=== PATIENT | female | born 1990 | race American Indian/Alaskan Native ===

== ENCOUNTER 2017-01-15 01:45 | Emergency (ER) | payer MEDICAID, OTHER ==
[2017-01-15 01:51] VITALS: BP 116/81
[2017-01-15] MEDS ORDERED: GI Cocktail Oral Solution 30 ML PO ONE (02:18)
--- NOTE | 2017-01-15 02:21 | EDM.PDOC ---
ED HPI ENT - General Chief Complaint: ENT Problem Stated Complaint: STREP THROAT;9 WKS Time Seen by Provider: 01/15/17 02:19 Source of Information: Reports: Patient History Limitations: Reports: No limitations - History of Present Illness INITIAL COMMENTS - FREE TEXT/NARRATIVE: c/o sore throat after vomiting from coughing so hard. not sure if it's strep since been spitting up at lot. - Related Data Allergies/ADRs: Allergies Allergy/AdvReac Type Severity Reaction Status Date / Time laundry soap Allergy Itching Uncoded 01/15/17 01:51 Home Meds: Home Meds . 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 ED EXAM, ENT - Physical Exam Exam: See Below Exam Limited By: No limitations General Appearance: alert, WD/WN, mild distress, other (upset) Ears: hearing grossly normal Mouth/Throat: Pharyngeal erythema Head: atraumatic Neck: non-tender, full range of motion Respiratory/Chest: no respiratory distress, lungs clear, normal breath sounds, no accessory muscle use Cardiovascular: regular rate, rhythm GI/Abdominal: soft, non tender Neurological: alert, oriented, normal cognition, normal gait, no motor/sensory deficits Psychiatric: tearful Skin: Warm, Dry Lymphatic: no adenopathy Course - Vital Signs Last Recorded V/S: Last Vital Signs Temp 36.9 C 01/15/17 01:48 Pulse 96 01/15/17 01:48 Resp 18 01/15/17 01:48 BP 116/81 01/15/17 01:48 Pulse Ox 98 01/15/17 01:48 - Orders/Labs/Meds Orders: Active Orders 24 hr Category Date Time Status CULTURE STREP A CONFIRMATION [RM] Stat Lab 01/15/17 01:55 Results STREP SCRN A RAPID W CULT CONF [RM] Stat Lab 01/15/17 01:55 Results Meds: Medications Discontinued Medications Generic Name Dose Route Start Last Admin Trade Name Sonny PRN Reason Stop Dose Admin Al Hydroxide/Mg Hydroxide 30 ml 01/15/17 02:18 01/15/17 02:22 Gi Cocktail PO 01/15/17 02:19 30 ml ONETIME ONE Administration - Re-Assessments/Exams Free Text/Narrative Re-Assessment/Exam: 01/15/17 02:48 s/p GI cocktail=much better. Departure - Departure Time of Disposition: 02:49 Disposition: Home, Self-Care 01 Condition: good Clinical Impression: Esophagitis Instructions: Heartburn, [id number] Forms: ED Department Discharge Additional Instructions: 1) rest 2) follow up at clinic or recheck as needed - My Orders Last 24 Hours: My Active Orders 01/15/17 01:55 CULTURE STREP A CONFIRMATION [RM] Stat STREP SCRN A RAPID W CULT CONF [RM] Stat - Assessment/Plan Last 24 Hours: My Active Orders 01/15/17 01:55 CULTURE STREP A CONFIRMATION [RM] Stat STREP SCRN A RAPID W CULT CONF [RM] Stat
== END 2017-01-15 02:52 | disposition home or self-care (01) ==
LOC: DL.ED 01:45
DX: K20.9 Esophagitis, unspecified (principal); Z87.440 Personal history of urinary (tract) infections; Z91.09 Other allergy status, other than to drugs and biological substances
CPT/HCPCS: 87081; 87430; 99283; A9270

== ENCOUNTER 2017-08-11 18:43 | Inpatient (IN) | payer MEDICAID, OTHER ==
[2017-08-11] MEDS: Lactated Ringers 1,000 ML IV SCH (19:50)
[2017-08-11] MEDS ORDERED: Sodium Chloride 0.9% 10 ML Syringe FLUSH PRN (20:04)
[2017-08-11] MEDS ORDERED: Misoprostol 400 MCG (4 X 100 MCG TAB) RECTAL PRN (20:04)
[2017-08-11] MEDS ORDERED: Methylergonovine 0.2 MG/1 ML Amp IM PRN (20:04)
[2017-08-11] MEDS ORDERED: Lactated Ringers 500 ML IV ONE (20:04)
[2017-08-11] MEDS ORDERED: Ondansetron 4 MG/2 ML SDV IV PRN (20:04)
[2017-08-11] MEDS ORDERED: Carboprost Tromethamine 250 MCG/1 ML Amp IM PRN (20:04)
[2017-08-11] MEDS ORDERED: Lidocaine 1% 30 ML SDV INJECT PRN (20:04)
[2017-08-11] MEDS: Oxytocin/Normal Saline 30 UNIT/500 ML BAG IV SCH (22:22)
[2017-08-11] MEDS: Acetaminophen 325 MG Tab PO PRN (22:41)
[2017-08-12] MEDS: Lactated Ringers 1,000 ML IV SCH ×4 (03:25→21:27)
[2017-08-12] MEDS ORDERED: fentaNYL 100 MCG/2 ML SDV ONE (04:05)
--- NOTE | 2017-08-12 04:55 | PCM.PRNOTE ---
- Free Text/Narrative Note: Requested to provide analgesia to full term patient in severe pain. Upon entering the room, patient is sitting up complaining of severe abdominal pain and discomfort. Procedure was discussed with patient including adverse outcomes and expectations. Pt consented to analgesia, SAB/IT. Pt placed into a sitting position. Landmarks for SAB/IT were identified and marked. Back was prepped with betadine x3. A sterile, transparent, fenestrated drape was applied. Excess betadine was removed. Using 3 mL of a 1% lidocaine solution, a skin wheel was placed at the L3/L4 interspace. A 24 ga (4 inch) Pencan spinal needle was inserted until positive for CSF. Negative for heme or paresthesias. Injected fentanyl 20 mcg, sufentanil 10 mcg, and 12 mg of a 0.75% bupivacaine solution with an epi wash. Pt was placed left lateral position for approximately 20 minutes. Pt was having a few late decels so was turned right. After 5 minutes, decels had improved. There were zero complications or adverse outcomes. Will continue to monitor.
[2017-08-12] MEDS: Acetaminophen 325 MG Tab PO PRN (08:55)
[2017-08-12] MEDS ORDERED: Morphine PF 1 MG/ML Amp ONE (09:13)
[2017-08-12] MEDS ORDERED: Ondansetron 4 MG/2 ML SDV ONE (09:14)
[2017-08-12] MEDS ORDERED: Ketorolac 30 MG/ML SDV ONE (09:14)
[2017-08-12] MEDS ORDERED: ePHEDrine 50 MG/ML SDV ONE (09:14)
[2017-08-12] MEDS ORDERED: Citric Acid/Sodium Citrate Solution 30 ML Cup PO ONE (09:27)
[2017-08-12] MEDS ORDERED: Oxytocin/Normal Saline 60 UNIT/1,000 ML BAG ONE (09:42)
[2017-08-12] MEDS: Ampicillin 2 GM in Sodium Chloride 0.9% 100 ML IV SCH ×3 (10:12→21:15)
[2017-08-12] MEDS ORDERED: diphenhydrAMINE 50 MG/ML SDV IVPUSH PRN (10:43)
[2017-08-12] MEDS ORDERED: Acetaminophen 325 MG Tab PO PRN (10:43)
[2017-08-12] MEDS ORDERED: Naloxone 2 MG/2 ML Syringe IVPUSH PRN (10:43)
[2017-08-12] MEDS ORDERED: Ondansetron 4 MG/2 ML SDV IV PRN (10:43)
[2017-08-12] MEDS ORDERED: ePHEDrine 50 MG/ML SDV IVPUSH PRN (10:43)
[2017-08-12] MEDS ORDERED: Misoprostol 400 MCG (4 X 100 MCG TAB) RECTAL PRN (10:43)
[2017-08-12] MEDS ORDERED: Acetaminophen/oxyCODONE 325-5 MG Tab PO PRN (10:43)
[2017-08-12] MEDS ORDERED: Methylergonovine 0.2 MG/1 ML Amp IM PRN (10:43)
[2017-08-12] MEDS ORDERED: Carboprost Tromethamine 250 MCG/1 ML Amp IM ONE (10:43)
[2017-08-12] MEDS: Oxytocin/Normal Saline 30 UNIT/500 ML BAG IV SCH (10:51)
[2017-08-12] MEDS ORDERED: Promethazine 25 MG/ML SDV IM PRN (12:15)
[2017-08-12] MEDS: Clindamycin Phosphate 900 MG in Sodium Chloride 0.9% 100 ML IV SCH ×3 (12:22→23:47)
--- NOTE | 2017-08-12 15:29 | OR ---
DATE: 08/12/2017 PREOPERATIVE DIAGNOSIS: An IUP at 39 weeks gestational age with nonreassuring heart tones in the setting of chorioamnionitis. POSTOPERATIVE DIAGNOSIS: An IUP at 39 weeks gestational age with nonreassuring heart tones in the setting of chorioamnionitis. PROCEDURE: Primary low-transverse . CONVEYOR LINE BATTERY CHARGER: Marixa Rizvi MD ANESTHESIA: Spinal. POSTOPERATIVE FINDINGS: There was a viable infant, and the patient had normal female anatomy. scores were 7 and 9. Baby weighed 6 pounds, 13 ounces. PATHOLOGY: Placenta. ESTIMATED BLOOD LOSS: 700 mL. PROCEDURE IN DETAIL: The patient was admitted the night before with premature rupture of membranes. As she did not progress in labor herself, therefore Pitocin augmentation was started. The patient very slowly progressed and then developed fevers and non-reassuring heart tones. The patient did have chorioamnionitis, therefore, gentamicin and ampicillin were both started. The patient would not progress past 7 to 8 cm, therefore, she was taken the operating room, where she was prepped and draped in normal sterile fashion with a Christianson in place in a leftward tilt. Skin incision was made 2 fingerbreadths above the pubic symphysis carried down the underlying fascia. The fascia was incised in the midline. Fascial incision was extended laterally using heavy scissors. Upper aspect of the fascia was grasped with Luis Enrique clamps and the rectus muscles were dissected off bluntly with the heavy scissors. Lower aspect of the fascia was grasped with Luis Enrique clamps, and again the rectus muscles were dissected off bluntly and with the heavy scissors. Rectus muscles were in the midline. Peritoneum was entered with blunt finger dissection. The peritoneum was stretched open and the self-retraining retractor was then placed, the Luciano, and the bladder flap was created by first grasping the vesicouterine peritoneum with a pickup, entered sharply with the Metzenbaum scissors. Bladder flap was created digitally. Lower uterine segment was incised in a transverse fashion with the scalpel. The incision was extended using the Mcrae method. The infant's head was grasped and the infant was delivered without any difficulty. The cord was cut and clamped. The infant was handed off to Dr. Rizvi, who took the baby to the warmer. The placenta was then manually extracted and sent the pathology. Infant's scores were 7 and 8. Baby weighed 6 pounds, 13 ounces. The hysterotomy was then repaired with a running locked 0 Vicryl. A second layer of 0 Vicryl imbricating. The pelvis was then copiously irrigated. The Luciano retractor was then removed, and the peritoneum was reapproximated using a running 3-0 Vicryl. Fascia was repaired using a running 0 Vicryl. Subcutaneous fat was irrigated and the skin was reapproximated using a subcuticular stitch with Milton needle with Steri-Strips over that. The patient tolerated the procedure well. Sponge, lap, needle counts were correct x2. Estimated blood loss was 700 mL. The patient was then continued on ampicillin and gentamicin, and clindamycin was added postoperatively at least for the first 24 hours. [facility] /[id number] RUBI
[2017-08-12] MEDS: Ketorolac 30 MG/ML SDV IVPUSH SCH ×2 (16:39→22:22)
[2017-08-12] MEDS: Docusate Sodium 100 MG Cap PO PRN (23:32)
[2017-08-12] MEDS: Simethicone 80 MG Tab.Chew PO PRN (23:33)
[2017-08-13] MEDS: Ampicillin 2 GM in Sodium Chloride 0.9% 100 ML IV SCH ×4 (03:10→21:27)
[2017-08-13] MEDS: Simethicone 80 MG Tab.Chew PO PRN ×4 (03:19→21:37)
[2017-08-13] MEDS: Ketorolac 30 MG/ML SDV IVPUSH SCH (04:17)
[2017-08-13] MEDS: Lactated Ringers 1,000 ML IV SCH (04:24)
[2017-08-13] MEDS: Clindamycin Phosphate 900 MG in Sodium Chloride 0.9% 100 ML IV SCH ×3 (06:11→17:57)
[2017-08-13] MEDS: Acetaminophen/oxyCODONE 325-5 MG Tab PO PRN ×3 (06:13→21:36)
[2017-08-13] MEDS: Docusate Sodium 100 MG Cap PO PRN ×2 (08:45→21:36)
--- NOTE | 2017-08-13 08:45 | HP ---
HISTORY OF PRESENT ILLNESS: The patient is a 26-year-old, G4, P2, at 39 weeks gestational age, who presents today with leakage of fluid. No real painful contraction. She had a good movement. No vaginal bleeding. No fevers or chills. OBSTETRICAL HISTORY: The patient has had 1 miscarriage in April of 2016. The patient had 2 vaginal deliveries. Biggest baby born was 9 pounds 1 ounce. GYNECOLOGICAL HISTORY: She did have an abnormal Pap and colposcopy previously, but followup has been normal. No STDs. PAST MEDICAL HISTORY: Negative. PAST SURGICAL HISTORY: Just an oral surgery. SOCIAL HISTORY: The patient does smoke. ALLERGIES: The patient has no known drug allergies. LABS: Patient's blood type O positive. Antibody negative. Rubella immune. Syphilis negative. Hep B negative. HIV negative. GC and chlamydia negative. Hep C negative. One-hour was 148, but three-hour was normal. Group B strep was negative. The patient had ultrasounds at 7 and 20 weeks gestational age which were consistent with dates, showed a posterior placenta and normal anatomy. PHYSICAL EXAMINATION: Vital Signs: Upon admission the patient's blood pressure 122/71, and heart rate 101. The patient is afebrile. Lungs: Clear to auscultation bilaterally. Heart: Regular rate and rhythm. The external monitoring was reactive and reassuring with a few random decelerations tesha every 4 minutes. Cervix per the Labor Nurse was 3 cm. ASSESSMENT AND PLAN: A 26-year-old, G4, P2, at 39 weeks gestational age, uncomplicated thus far with premature rupture of membranes. I do want augment this patient with Pitocin and plan for vaginal delivery. Unfortunately, though through the evening the patient cannot seem to progress past 7 to 8 cm. She is now having non-reassuring heart tones and did have a temp of 101.6; therefore, ampicillin and gentamicin were both started and patient does consent to a primary low-transverse for non-reassuring heart tones in the background of chorioamnionitis. [facility] /[id number]
--- NOTE | 2017-08-13 12:24 | PN ---
DATE: 08/13/2017 Postop day #1, status post primary low transverse . SUBJECTIVE: The patient has now been tolerating p.o., passing flatus, has got out of bed, has urinated, and Christianson has been pulled. OBJECTIVE: Vital Signs: Include a temperature of 97.8, heart rate 117, blood pressure 107/61, respiratory rate 18, and O2 sats 100% on room air. Appearance: Awakes easily from sleep. Lungs: Clear to auscultation bilaterally. Heart: S1 and S2. Regular rate and rhythm. Abdomen: Firm uterus, -1 below umbilicus. ABD pad over the incision is noted. JAMEY hose are on. Extremities: Trace pedal edema. No calf pain. ASSESSMENT AND PLAN: Postop day #1, status post primary low transverse C- section complicated by chorioamnionitis and fever, resolving. The patient has been afebrile since delivery. We will continue to follow clinically and closely. She is currently on Amp, Gent, and Clindamycin. Most likely, we will discontinue this in the future and plans were discussed with the patient. She understands and agrees the above treatment plan. [facility] /[id number]
[2017-08-13] MEDS ORDERED: Ketorolac 30 MG/ML SDV IVPUSH ONE (14:31)
[2017-08-13] MEDS ORDERED: Morphine PF 1 MG/ML Amp ONE (14:31)
[2017-08-13] MEDS ORDERED: ePHEDrine 50 MG/ML SDV IV ONE (14:31)
[2017-08-13] MEDS ORDERED: Ondansetron 4 MG/2 ML SDV IV ONE (14:31)
[2017-08-13] MEDS ORDERED: fentaNYL 100 MCG/2 ML SDV ITHECAL ONE ×2 (14:33→14:42)
[2017-08-13] MEDS: Ibuprofen 800 MG Tab PO PRN (16:21)
[2017-08-13] MEDS: Sodium Chloride 0.9% 10 ML Syringe FLUSH PRN (21:27)
[2017-08-14] MEDS: Clindamycin Phosphate 900 MG in Sodium Chloride 0.9% 100 ML IV SCH ×2 (00:32→05:56)
[2017-08-14] MEDS: Ibuprofen 800 MG Tab PO PRN ×3 (00:40→18:09)
[2017-08-14] MEDS: Ampicillin 2 GM in Sodium Chloride 0.9% 100 ML IV SCH ×2 (03:09→08:44)
[2017-08-14] MEDS: Acetaminophen/oxyCODONE 325-5 MG Tab PO PRN ×5 (04:05→22:55)
[2017-08-14] MEDS: Simethicone 80 MG Tab.Chew PO PRN ×3 (08:27→22:55)
[2017-08-14] MEDS: Docusate Sodium 100 MG Cap PO PRN ×2 (08:27→22:55)
[2017-08-14] MEDS: Sodium Chloride 0.9% 10 ML Syringe FLUSH PRN (08:45)
--- NOTE | 2017-08-14 09:22 | PN ---
DATE: 08/14/2017 Postoperative day #2. SUBJECTIVE: The patient is tolerating POs, ambulating, urinating, passing flatus, had a bowel movement last night. OBJECTIVE: Vital Signs: Temperature 96.9, heart rate is 78, blood pressure 115/76, and respiratory rate 16. Lungs: Clear to auscultation bilaterally. Heart: S1 and S2. Regular rate and rhythm. Abdomen: Firm uterus -1 below umbilicus. Incision appears dry and intact except for minimal drainage in the midline with Steri-Strips applied. No underlying erythema, fluctuance, or excessive tenderness. LABORATORY DATA: White cell count 11.7, hemoglobin 9.1, and platelets 251. ASSESSMENT: 1. Postoperative day #2, status post primary low transverse section. 2. Chorioamnionitis. The patient will receive for approximately 48 hours antibiotics and discontinue these later this morning. 3. Anemia of acute blood loss. Hemoglobin dropping from 10.9 to 9.1. The patient is currently asymptomatic. Denies any chest pain, shortness of breath, or lightheadedness, and appears stable. We will follow closely. PLAN: Please see orders for further details. Possible discharge tomorrow. [facility] /[id number]
[2017-08-14] MEDS ORDERED: Oxytocin/Normal Saline 30 UNIT/500 ML BAG IV ONE (16:41)
[2017-08-15] MEDS: Ibuprofen 800 MG Tab PO PRN ×2 (03:31→12:12)
[2017-08-15] MEDS: Acetaminophen/oxyCODONE 325-5 MG Tab PO PRN ×2 (04:02→12:12)
[2017-08-15 08:14] VITALS: BP 98/70
[2017-08-15] MEDS: Docusate Sodium 100 MG Cap PO PRN (12:13)
--- NOTE | 2017-08-15 14:29 | DISCH ---
ADMISSION DATE: 08/11/2017 ADMIT DIAGNOSES: 1. Intrauterine at term. 2. Premature rupture of membranes. 3. Impaired glucose tolerance. DISCHARGE DIAGNOSES: 1. Intrauterine , delivered via primary low transverse . 2. Premature rupture of membranes. 3. Impaired glucose tolerance. 4. Chorioamnionitis, requiring approximately 48 hours antibiotics. 5. Anemia acute blood loss. Hemoglobin dropping from 10.9 to 9.1. 6. Now G3, P3-0-0-3. 7. Nonreassuring status. HISTORY OF PRESENT ILLNESS: Please see H and P. SUMMARY OF HOSPITAL COURSE: The patient was admitted on the above date with the above diagnoses. She had premature rupture of membranes and nonreassuring status, and evidence of chorioamnionitis, underwent a primary low transverse C- section yielding a female with scores of 7 and 8, weighing 3080 g (6 pounds, 13 ounces). Please see delivery note for further details. Postop day #1 and #2, please see progress notes. The patient was kept on antibiotics for approximately 48 hours and followed closely. She has been afebrile since delivery. DISCHARGE EVALUATION: Vital Signs: Temperature 98.2, heart rate 77, blood pressure 98/70, respiratory rate 16. Lungs: Clear to auscultation bilaterally. Heart: S1 and S2. Regular rate and rhythm. Abdomen: Firm uterus, -1 below umbilicus. Incision revealed Steri-Strips applied, minimal drainage, otherwise, dry and intact. Extremities: 1+ pitting edema to proximal tibia with JAMEY hose on. No calf pain. CONDITION ON DISCHARGE COMPARED TO CONDITION ON ADMISSION: Improved. DISCHARGE INSTRUCTIONS: 1. Diet: As tolerated. 2. Activity: No lifting more than 20 pounds. No sit-ups, straining, and pelvic rest for next 6 weeks with immediate return to fertility discussed with the patient. 3. Reasons to return or go to the emergency room were discussed with the patient in detail including, but not limited to, temperature greater than 100.4, foul-smelling discharge, red or hot breasts, or increased vaginal bleeding. DISCHARGE MEDICATIONS: 1. [id number] Tylenol or ibuprofen for pain. 2. Iron sulfate 325 b.i.d. x6 weeks. 3. Percocet 5/325, one to two q.6 hours p.r.n., #30. No refills. Discussed the use of these medication, adverse and wanted effects, as well precautions while driving. FOLLOWUP: Followup on 08/17/2017 for incision check and along with her baby. I did discuss with her the importance of followup and ramifications of not doing so, as well as reason to emergency room in regard to her . [facility] /[id number]
== END 2017-08-15 15:50 | disposition home or self-care (01) | DRG 765 ==
LOC: DL.OBCHECK 18:43 → DL.OB 19:47 → OBSVTOIN 08-12 10:17
PROVIDERS: ADMIT Obstetrics & Gynecology; ATTEND Obstetrics & Gynecology
PROC: 10D00Z1 Extraction of Products of Conception, Low, Open Approach (ICD-10-PCS; principal; 2017-08-12)
PROC: 3E0R3BZ Introduction of Anesthetic Agent into Spinal Canal, Percutaneous Approach (ICD-10-PCS; 2017-08-12)
PROC: 00HU33Z Insertion of Infusion Device into Spinal Canal, Percutaneous Approach (ICD-10-PCS; 2017-08-12)
DX: O42.02 Full-term premature rupture of membranes, onset of labor within 24 hours of rupture (principal); O41.1230 Chorioamnionitis, third trimester, not applicable or unspecified; D62 Acute posthemorrhagic anemia; O76 Abnormality in fetal heart rate and rhythm complicating labor and delivery; O99.02 Anemia complicating childbirth; Z3A.39 39 weeks gestation of pregnancy; Z37.0 Single live birth; O99.334 Smoking (tobacco) complicating childbirth; F17.200 Nicotine dependence, unspecified, uncomplicated
CPT/HCPCS: 01961; 01967; 36415; 82565; 83986; 85027; 86850; 86900; 86901; A9270-GY; J0290; J1200; J1580; J1885; J2274; J2405; J2550; J2590; J3010; J7050; J7120; S0077

== ENCOUNTER 2020-09-19 02:11 | Emergency (ER) | payer MEDICAID, OTHER ==
[2020-09-19 02:37] VITALS: BP 134/93; PULSE 112
[2020-09-19] MEDS ORDERED: Phenazopyridine 95 MG Tab PO ONE (03:06)
[2020-09-19] MEDS ORDERED: Sulfamethoxazole/Trimethoprim 800-160 MG Tab PO ONE (03:06)
--- NOTE | 2020-09-19 03:11 | EDM.PDOC ---
ED HPI GENERAL MEDICAL PROBLEM - General Chief Complaint: Genitourinary Problem Stated Complaint: UTI Time Seen by Provider: 09/19/20 03:07 Source of Information: Reports: Patient History Limitations: Reports: No Limitations - History of Present Illness INITIAL COMMENTS - FREE TEXT/NARRATIVE: onset dysuria urgency today - Related Data Allergies Allergy/AdvReac Type Severity Reaction Status Date / Time laundry soap AdvReac Mild Rash Uncoded 08/12/17 00:00 Home Meds: Home Meds Vit37/Iron/Folic Acid [Prenata] 1 tab PO DAILY 08/11/17 [History] Ibuprofen [Advil] 400 mg PO DAILY PRN 08/12/17 [History] Past Medical History - Past Health History Medical/Surgical History: Denies Medical/Surgical History HEENT History: Reports: None Cardiovascular History: Reports: None Respiratory History: Reports: None Gastrointestinal History: Reports: None Genitourinary History: Reports: UTI, Recurrent 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: , 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 , 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 (See Below) 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 Musculoskeletal History: Reports: None Neurological History: Reports: None Psychiatric History: Reports: None Endocrine/Metabolic History: Reports: None Hematologic History: Reports: None Immunologic History: Reports: None Oncologic (Cancer) History: Reports: None Dermatologic History: Reports: None - Infectious Disease History Infectious Disease History: Reports: None - Past Surgical History Head Surgeries/Procedures: Reports: None Female Surgical History: Reports: Other (See Below) Other Female Surgeries/Procedures: cervical biopsy hx Social & Family History - Family History Family Medical History: No Pertinent Family History - Tobacco Use Tobacco Use Status *Q: Current Every Day Tobacco User Years of Tobacco use: 2 Packs/Tins Daily: 0.2 - Caffeine Use Caffeine Use: Reports: Soda Other Caffeine Use: 2/day - Recreational Drug Use Recreational Drug Use: No ED ROS GENERAL - Review of Systems Review Of Systems: Comprehensive ROS is negative, except as noted in HPI. ED EXAM, RENAL/ - Physical Exam Exam: See Below Exam Limited By: No Limitations General Appearance: Alert, WD/WN, Mild Distress, Other (discomfort). No: Active Emesis Ears: Hearing Grossly Normal Throat/Mouth: Normal Voice, No Airway Compromise Head: Atraumatic Neck: Non-Tender, Full Range of Motion Respiratory/Chest: No Respiratory Distress Cardiovascular: Regular Rate, Rhythm GI/Abdominal: Tender, Other (supraoubic). No: Distended, Guarding, Rigid, Rebound (Female) Exam: Deferred Rectal (Female) Exam: Deferred Back Exam: No: CVA Tenderness (L), CVA Tenderness (R) Neurological: Alert, Oriented, Normal Cognition, Normal Gait, No Motor/Sensory Deficits Psychiatric: Normal Affect, Normal Mood Skin Exam: Warm, Dry, Normal Color Lymphatic: No Adenopathy Course - Vital Signs Last Recorded V/S: Last Vital Signs Temp 37.0 C 09/19/20 02:33 Pulse 112 H 09/19/20 02:33 Resp 16 09/19/20 02:33 BP 134/93 H 09/19/20 02:33 Pulse Ox 100 09/19/20 02:33 - Orders/Labs/Meds Orders: Active Orders 24 hr Category Date Time Status CULTURE URINE [RM] Routine Lab 09/19/20 02:24 Received Labs: Laboratory Tests 09/19/20 Range/Units 02:24 Urine Color Dark yellow (YELLOW) Urine Appearance Cloudy (CLEAR) Urine pH 6.5 (5.0-9.0) Ur Specific [place] >= 1.030 (1.005-1.030) Urine Protein >=300 H (NEGATIVE) Urine Glucose (UA) Negative (NEGATIVE) Urine Ketones Negative (NEGATIVE) Urine Occult Blood Large H (NEGATIVE) Urine Nitrite Negative (NEGATIVE) Urine Bilirubin Small H (NEGATIVE) Urine Urobilinogen 4.0 H (0.2-1.0) mg/dL Ur Leukocyte Esterase Trace H (NEGATIVE) Urine RBC Packed H /HPF Urine WBC 5-10 H (0-5/HPF) /HPF Ur Epithelial Cells Moderate H (NOT SEEN) /HPF Urine Bacteria Moderate H (0-FEW/HPF) /HPF Meds: Medications Discontinued Medications Generic Name Dose Route Start Last Admin Trade Name Freq PRN Reason Stop Dose Admin Phenazopyridine HCl 95 mg 09/19/20 03:06 Urinary Pain Relief PO 09/19/20 03:07 ONETIME ONE Trimethoprim/Sulfamethoxazole 1 tab 09/19/20 03:06 Septra Ds PO 09/19/20 03:07 ONETIME ONE - Re-Assessments/Exams Free Text/Narrative Re-Assessment/Exam: 09/19/20 03:09 results discussed with pt. Departure - Departure Time of Disposition: 03:09 Disposition: Home, Self-Care 01 Condition: Good Clinical Impression: UTI, Urinary tract infectious disease - Discharge Information Instructions: Urinary Tract Infection, Adult, [id number] Additional Instructions: 1) drink lots of liquids 2) follow up at clinic rx given; bactrim DS bid x 20 pyridium 100mg tid x 12 Sepsis Event Note (ED) - Evaluation Sepsis Screening Result: No Definite Risk - Focused Exam Vital Signs: Vital Signs Temp Pulse Resp BP Pulse Ox 09/19/20 02:33 37.0 C 112 H 16 134/93 H 100 - My Orders Last 24 Hours: My Active Orders 09/19/20 02:24 CULTURE URINE [RM] Routine - Assessment/Plan Last 24 Hours: My Active Orders 09/19/20 02:24 CULTURE URINE [RM] Routine
== END 2020-09-19 03:25 | disposition home or self-care (01) ==
LOC: DL.ED 02:11
DX: N39.0 Urinary tract infection, site not specified (principal); F17.210 Nicotine dependence, cigarettes, uncomplicated; Z91.048 Other nonmedicinal substance allergy status
CPT/HCPCS: 81001; 87086; 99283; A9270-GY

== ENCOUNTER 2021-10-25 16:14 | Emergency (ER) | payer MEDICAID ==
[2021-10-25 18:05] VITALS: BP 125/85; PULSE 109
[2021-10-25 18:39] LABS: ANION GAP 15.5 mEq/L (7-13); CHLORIDE,CL 104 mmol/L (98-107); SODIUM,NA 143 mmol/L (136-145)
[2021-10-25 20:00] LABS: RESPIRATORY SYNCYTIAL VIR NAA NEGATIVE (NEGATIVE)
[2021-10-25 20:13] LABS: CORONAVIRUS COVID-19 NAA POSITIVE (NEGATIVE)
--- NOTE | 2021-10-25 20:34 | EDM.PDOC ---
ED HPI GENERAL MEDICAL PROBLEM - General Chief Complaint: Chest Pain Stated Complaint: CHEST PAIN Time Seen by Provider: 10/25/21 20:25 Source of Information: Reports: Patient History Limitations: Reports: No Limitations - History of Present Illness INITIAL COMMENTS - FREE TEXT/NARRATIVE: This 31 yo female patient reports to the ED with back pain and chest tightness that started today. The patient reports she did not have any additional symptoms or concerns at this time. Onset: Today Duration: Constant Location: Reports: Generalized Quality: Reports: Other Severity: Moderate Improves with: Reports: None Worsens with: Reports: None Context: Reports: Other Associated Symptoms: Reports: Chest Pain, Other (back aches) Treatments SAP TRAINER: Reports: Other (see below) Other Treatments SAP TRAINER: labs Epigastric Pain Score (Numeric/FACES): 5 - Related Data Allergies Allergy/AdvReac Type Severity Reaction Status Date / Time laundry soap AdvReac Mild Rash Uncoded 10/25/21 18:13 Home Meds: Home Meds Ibuprofen [Advil] 400 mg PO DAILY PRN 08/12/17 [History] Acetaminophen [Tylenol] 325 mg PO DAILY PRN 10/25/21 [History] Past Medical History - Past Health History Medical/Surgical History: Denies Medical/Surgical History HEENT History: Reports: None Cardiovascular History: Reports: None Respiratory History: Reports: None Gastrointestinal History: Reports: None Genitourinary History: Reports: UTI, Recurrent DRAMATIC READER History: Reports: , Spontaneous , Other (See Below) Other DRAMATIC READER History: colposcopy December 2015 Musculoskeletal History: Reports: None Neurological History: Reports: None Psychiatric History: Reports: None Endocrine/Metabolic History: Reports: None Hematologic History: Reports: None Immunologic History: Reports: None Oncologic (Cancer) History: Reports: None Dermatologic History: Reports: None - Infectious Disease History Infectious Disease History: Reports: None - Past Surgical History Head Surgeries/Procedures: Reports: None Female Surgical History: Reports: Other (See Below) Other Female Surgeries/Procedures: cervical biopsy hx Social & Family History - Family History Family Medical History: No Pertinent Family History - Tobacco Use Tobacco Use Status *Q: Current Every Day Tobacco User Years of Tobacco use: 5 Packs/Tins Daily: 0.4 - Caffeine Use Caffeine Use: Reports: Soda, Tea Other Caffeine Use: 2/day - Recreational Drug Use Recreational Drug Use: No ED ROS GENERAL - Review of Systems Review Of Systems: Comprehensive ROS is negative, except as noted in HPI. ED EXAM, GENERAL - Physical Exam Exam: See Below Exam Limited By: No Limitations General Appearance: Alert, WD/WN, Moderate Distress Eye Exam: Bilateral Eye: EOMI, Normal Inspection, PERRL Ears: Normal External Exam, Normal Canal, Hearing Grossly Normal, Normal TMs Nose: Normal Inspection, Normal Mucosa, No Blood Throat/Mouth: Normal Inspection, Normal Lips, Normal Teeth, Normal Gums, Normal Oropharynx, Normal Voice, No Airway Compromise Head: Atraumatic, Normocephalic Neck: Normal Inspection, Supple, Non-Tender, Full Range of Motion Respiratory/Chest: No Respiratory Distress, Lungs Clear, Normal Breath Sounds, No Accessory Muscle Use, Chest Non-Tender Cardiovascular: Normal Peripheral Pulses, Regular Rate, Rhythm, No Edema, No Gallop, No JVD, No Murmur, No Rub GI/Abdominal: Normal Bowel Sounds, Soft, Non-Tender, No Organomegaly, No Diste ntion, No Abnormal Bruit, No Mass (Female) Exam: Deferred Rectal (Female) Exam: Deferred Back Exam: Normal Inspection, Full Range of Motion, NT Extremities: Normal Inspection, Normal Range of Motion, Non-Tender, Normal Capillary Refill, No Pedal Edema Neurological: Alert, Oriented, CN II-XII Intact, Normal Cognition, Normal Gait, Normal Reflexes, No Motor/Sensory Deficits Psychiatric: Normal Affect, Normal Mood Skin Exam: Warm, Dry, Intact, Normal Color, No Rash Lymphatic: No Adenopathy Course - Vital Signs Last Recorded V/S: Last Vital Signs Temp 99.0 F 10/25/21 18:03 Pulse 109 H 10/25/21 18:03 Resp 18 10/25/21 18:03 BP 125/85 10/25/21 18:03 Pulse Ox 98 10/25/21 18:03 - Orders/Labs/Meds Labs: Laboratory Tests 10/25/21 10/25/21 10/25/21 Range/Units 18:09 18:09 18:09 WBC 9.7 (5.0-10.0) 10^3/uL RBC 4.66 (4.2-5.4) 10^6/uL Hgb 13.8 D (12.0-16.0) g/dL Hct 41.7 (37.0-47.0) % MCV 89.5 (80-100) fL MCH 29.6 (27.0-34.0) pg MCHC 33.1 (33.0-35.0) g/dL Plt Count 304 (150-450) 10^3/uL Sodium 143 (136-145) mmol/L Potassium 3.5 (3.5-5.1) mmol/L Chloride 104 (98-107) mmol/L Carbon Dioxide 27 (21-32) mmol/L Anion Gap 15.5 H (7-13) mEq/L BUN 9 (7-18) mg/dL Creatinine 0.84 (0.55-1.02) mg/dL Est Cr Clr Drug Dosing 87.32 mL/min Estimated GFR (MDRD) > 60 BUN/Creatinine Ratio 10.7 (No establ ref range) Glucose 99 (70-99) mg/dL Lactic Acid 0.9 (0.4-2.0) mmol/L Calcium 8.5 (8.5-10.1) mg/dL Total Bilirubin 0.2 (0.2-1.0) mg/dL AST 50 H (15-37) U/L ALT 98 H (14-59) U/L Alkaline Phosphatase 113 (46-116) U/L Troponin I High Sens 4 (<=51) pg/mL Total Protein 7.9 (6.4-8.2) g/dL Albumin 3.7 (3.4-5.0) g/dL Globulin 4.2 Albumin/Globulin Ratio 0.9 Influenza Type A RNA (NEGATIVE) RSV RNA (INAAT) (NEGATIVE) Influenza Type B RNA (NEGATIVE) SARS-CoV-2 RNA (TY) (NEGATIVE) 10/25/21 Range/Units 18:20 WBC (5.0-10.0) 10^3/uL RBC (4.2-5.4) 10^6/uL Hgb (12.0-16.0) g/dL Hct (37.0-47.0) % MCV (80-100) fL MCH (27.0-34.0) pg MCHC (33.0-35.0) g/dL Plt Count (150-450) 10^3/uL Sodium (136-145) mmol/L Potassium (3.5-5.1) mmol/L Chloride (98-107) mmol/L Carbon Dioxide (21-32) mmol/L Anion Gap (7-13) mEq/L BUN (7-18) mg/dL Creatinine (0.55-1.02) mg/dL Est Cr Clr Drug Dosing mL/min Estimated GFR (MDRD) BUN/Creatinine Ratio (No establ ref range) Glucose (70-99) mg/dL Lactic Acid (0.4-2.0) mmol/L Calcium (8.5-10.1) mg/dL Total Bilirubin (0.2-1.0) mg/dL AST (15-37) U/L ALT (14-59) U/L Alkaline Phosphatase (46-116) U/L Troponin I High Sens (<=51) pg/mL Total Protein (6.4-8.2) g/dL Albumin (3.4-5.0) g/dL Globulin Albumin/Globulin Ratio Influenza Type A RNA Negative (NEGATIVE) RSV RNA (INAAT) Negative (NEGATIVE) Influenza Type B RNA Negative (NEGATIVE) SARS-CoV-2 RNA (TY) Positive H (NEGATIVE) Departure - Departure Time of Disposition: 20:32 Disposition: Home, Self-Care 01 Condition: Fair Clinical Impression: COVID-19 Instructions: COVID-19: What Your Test Results Mean - [facility] (07/19/2021), COVID- 19: How to Protect Yourself and Others - CDC, COVID-19 Quarantine vs. Isolation - [facility] (07/18/2021) Forms: ED Department Discharge Care Plan Goals: The patient was advised of her examination and lab results during the visit. The patient was encouraged to take Tylenol and ibuprofen as directed. The patient should quarantine over the next 10 days due to a positive COVID test. If the patient has any additional symptoms or concerns, the patient should either return to the emergency department or visit her primary care facility. Sepsis Event Note (ED) - Evaluation Sepsis Screening Result: No Definite Risk - Focused Exam Vital Signs: Vital Signs Temp Pulse Resp BP Pulse Ox 10/25/21 18:03 99.0 F 109 H 18 125/85 98
== END 2021-10-25 20:37 | disposition home or self-care (01) ==
LOC: DL.ED 16:14
DX: U07.1 COVID-19 (principal); Z72.0 Tobacco use; Z91.048 Other nonmedicinal substance allergy status
CPT/HCPCS: 0241U; 36415; 80053; 83605; 84484; 85027; 99284

== ENCOUNTER 2021-10-31 14:23 | Emergency (ER) | payer MEDICAID ==
[2021-10-31 18:22] VITALS: PULSE 92
== END 2021-10-31 18:22 | disposition left against medical advice (07) ==
LOC: DL.ED 14:23
DX: Z53.21 Procedure and treatment not carried out due to patient leaving prior to being seen by health care provider (principal)

== ENCOUNTER 2022-09-25 00:08 | Emergency (ER) | payer MEDICAID ==
[2022-09-25 00:34] VITALS: BP 120/84; PULSE 94
[2022-09-25] MEDS ORDERED: Famotidine 20 MG Tab PO ONE (00:58)
[2022-09-25] MEDS ORDERED: Metoclopramide 10 MG Tab PO ONE (00:58)
== END 2022-09-25 02:19 | disposition home or self-care (01) ==
LOC: DL.ED 00:08
DX: O99.611 Diseases of the digestive system complicating pregnancy, first trimester (principal); K52.9 Noninfective gastroenteritis and colitis, unspecified; Z3A.13 13 weeks gestation of pregnancy; Z91.048 Other nonmedicinal substance allergy status; Z87.891 Personal history of nicotine dependence
CPT/HCPCS: 99283; A9270-GY

== ENCOUNTER 2023-03-05 12:26 | Inpatient (IN) | payer MEDICAID ==
[~2023-03-05 12:26] MED LIST: Acetaminophen 325 MG Tab PO PRN; Carboprost Tromethamine 250 MCG/1 ML Amp IM PRN; Citric Acid/Sodium Citrate Solution 30 ML Cup PO ONE; Methylergonovine 0.2 MG/1 ML Amp IM PRN; Misoprostol 400 MCG (4 X 100 MCG TAB) RECTAL PRN; Naloxone 2 MG/2 ML Syringe IVPUSH PRN; Ondansetron 4 MG/2 ML SDV IVPUSH PRN; Tranexamic Acid 1,000 MG in Sodium Chloride 0.9% 100 ML IV PRN; ceFAZolin 2 GM Vial IVPUSH ONE; ePHEDrine 50 MG/ML SDV IVPUSH PRN
[2023-03-05 12:31] LABS: HEMATOCRIT 36.7 % (37.0-47.0); HEMOGLOBIN 11.8 g/dL (12.0-16.0); MEAN CORPUSCULAR HEMOGLOBIN 28.8 pg (27.0-34.0); MEAN CORPUSCULAR HGB CONC 32.2 g/dL (33.0-35.0); MEAN CORPUSCULAR VOLUME 89.5 fL (80-100); RED BLOOD CELL COUNT 4.1 10^6/uL (4.2-5.4); WHITE BLOOD CELL COUNT,WBC 12.3 10^3/uL (5.0-10.0)
[2023-03-05] MEDS ORDERED: Ketorolac 30 MG/ML SDV IVPUSH SCH (14:00)
[2023-03-05] MEDS: Lactated Ringers 1,000 ML IV SCH ×3 (14:18→22:15)
[2023-03-05] MEDS ORDERED: Oxytocin/Normal Saline 30 UNIT/500 ML BAG IV SCH (16:15)
[2023-03-05] MEDS ORDERED: Promethazine 25 MG/ML SDV IM ONE (16:52)
[2023-03-05] MEDS: Simethicone 80 MG Tab.Chew PO SCH ×3 (16:53→22:06)
[2023-03-05] MEDS: diphenhydrAMINE 50 MG/ML SDV IVPUSH PRN (19:40)
[2023-03-05] MEDS: Ketorolac 30 MG/ML SDV IVPUSH SCH (23:57)
[2023-03-06] MEDS: diphenhydrAMINE 50 MG/ML SDV IVPUSH PRN ×2 (01:43→11:26)
[2023-03-06] MEDS: Lactated Ringers 1,000 ML IV SCH ×2 (02:58→11:25)
[2023-03-06] MEDS: Ketorolac 30 MG/ML SDV IVPUSH SCH ×2 (05:36→11:28)
[2023-03-06 07:02] LABS: HEMATOCRIT 36.4 % (37.0-47.0); HEMOGLOBIN 11.7 g/dL (12.0-16.0); MEAN CORPUSCULAR HGB CONC 32.1 g/dL (33.0-35.0); MEAN CORPUSCULAR VOLUME 90.3 fL (80-100); RED BLOOD CELL COUNT 4.03 10^6/uL (4.2-5.4)
[2023-03-06] MEDS: Simethicone 80 MG Tab.Chew PO SCH ×4 (11:08→21:34)
[2023-03-06] MEDS: Prenatal Multivitamin with Calcium/Folic Acid/Iron Tab PO SCH (11:08)
[2023-03-06] MEDS: Acetaminophen/oxyCODONE 325-5 MG Tab PO PRN ×2 (17:10→21:42)
[2023-03-06] MEDS: Ibuprofen 800 MG Tab PO PRN (21:34)
[2023-03-06] MEDS: Docusate Sodium 100 MG Cap PO PRN (21:34)
[2023-03-07] MEDS: Acetaminophen/oxyCODONE 325-5 MG Tab PO PRN ×4 (01:45→15:25)
[2023-03-07] MEDS: Ibuprofen 800 MG Tab PO PRN (05:35)
[2023-03-07] MEDS: Prenatal Multivitamin with Calcium/Folic Acid/Iron Tab PO SCH (08:00)
[2023-03-07] MEDS: Simethicone 80 MG Tab.Chew PO SCH ×2 (08:00→12:30)
[2023-03-07] MEDS: Docusate Sodium 100 MG Cap PO PRN (08:00)
[2023-03-07 15:58] VITALS: BP 138/77; PULSE 62
== END 2023-03-07 15:30 | disposition home or self-care (01) | DRG 788 ==
LOC: DL.MS 12:26 → OBSVTOIN 15:31
PROVIDERS: ADMIT Family Medicine; ATTEND Family Medicine
PROC: 10D00Z1 Extraction of Products of Conception, Low, Open Approach (ICD-10-PCS; principal; 2023-03-05)
DX: O41.03X0 Oligohydramnios, third trimester, not applicable or unspecified (principal); O24.425 Gestational diabetes mellitus in childbirth, controlled by oral hypoglycemic drugs; O34.211 Maternal care for low transverse scar from previous cesarean delivery; Z3A.37 37 weeks gestation of pregnancy; O43.813 Placental infarction, third trimester; Z37.0 Single live birth
CPT/HCPCS: 01961; 36415; 59025; 85027; 86850; 86900; 86901; A9270-GY; J0690; J1200; J1885; J2405; J2550; J2590; J7120